=== PATIENT | male | born 1995 | race African-American/Black ===

== ENCOUNTER 2021-03-19 11:33 | Emergency (ER) | payer OTHER ==
[~2021-03-19] VITALS: Ht 177.8 cm; Wt 139.3 kg
[2021-03-19] MEDS ORDERED: DIPH,PERTUSS(ACELL),TET VAC/PF 0.5 ML SYRINGE. VAX IM ONE (12:15)
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
[2021-03-19] MEDS ORDERED: LIDOCAINE 1% Multi-Dose 20 ML VIAL. INJ ONE (13:00)
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
[2021-03-19] MEDS ORDERED: CEPH500T PO (14:39)
[2021-03-19 14:47] VITALS: BP 159/90
== END 2021-03-19 14:47 | disposition home or self-care (01) ==
LOC: ER 11:33
DX: S01.511A Laceration without foreign body of lip, initial encounter (principal); R51.9 Headache, unspecified; M54.2 Cervicalgia; Z72.0 Tobacco use; V49.49XA Driver injured in collision with other motor vehicles in traffic accident, initial encounter; Y93.89 Activity, other specified; Y92.488 Other paved roadways as the place of occurrence of the external cause; Y99.8 Other external cause status
CPT/HCPCS: 12013; 70450; 72125; 90471; 90715; 99285; J3490